=== PATIENT | male | born 1945 | race Caucasian/White ===

== ENCOUNTER 2021-01-20 15:18 | Outpatient (REF) | payer MEDICARE, SELFPAY ==
--- NOTE | ~2021-01-20 | XR_ITS ---
EXAMINATION: XR RIBS, LEFT CLINICAL INFORMATION: Contusion of unspecified frontal wall of the thorax COMPARISON: None TECHNIQUE: 3 views of the left ribs were obtained. FINDINGS: There is an acute left anterior fourth rib fracture. There is an acute left anterior 11th rib fracture. There are old-appearing left anterior fifth and sixth rib fractures. The cardiac and mediastinal contours are normal. The lungs are clear. There is no pleural effusion or pneumothorax. There are degenerative changes of the spine. XR/XR ribs LT min 3V w CXR1V IMPRESSION: Acute left anterior fourth and 11th rib fractures.
== END 2021-01-20 15:19 | disposition home or self-care (01) ==
LOC: HO.HMGCX 15:18
PROVIDERS: Visit Provider Internal Medicine
DX: S20.212D Contusion of left front wall of thorax, subsequent encounter (principal)
CPT/HCPCS: 71101

== ENCOUNTER 2021-02-16 13:36 | Outpatient (REF) | payer MEDICARE, SELFPAY ==
--- NOTE | ~2021-02-16 | XR_ITS ---
EXAMINATION: XR CHEST CLINICAL INFORMATION: Anterior chest wall contusion COMPARISON: Previous chest and left rib x-rays January 2021 TECHNIQUE: 2 views of the chest were obtained. FINDINGS: The cardiac and mediastinal contours are stable. The lungs are clear. There is no pleural effusion or pneumothorax. There are surgical clips projecting over the right posterior medial chest. There are degenerative changes of the spine. There are degenerative changes of the right shoulder joint. Left-sided rib fractures seen on rib x-rays 01/20/2021 are not appreciated. XR/XR chest 2V IMPRESSION: No evidence for acute disease in the chest.
== END 2021-02-16 13:37 | disposition home or self-care (01) ==
LOC: HO.HMGCX 13:36
PROVIDERS: Visit Provider Internal Medicine
DX: S20.219D Contusion of unspecified front wall of thorax, subsequent encounter (principal)
CPT/HCPCS: 71046

== ENCOUNTER 2023-03-28 11:05 | Outpatient (AMB) | payer MEDICARE, SELFPAY ==
--- NOTE | 2023-03-28 13:13 | MHC.OFFWIV ---
Intake Vital Signs 03/28/23 13:14 Height 6 ft 1 in Weight 223 lb 8 oz BMI 29.5 BP 138/70 Blood Pressure Location Rt brachial Position Sitting Pulse 88 Pulse Source Pulse Oximeter Temp 96 F L Temp Source Temporal Artery Scan Pulse Oximetry (%) 98 Oxygen Delivery Method Room Air Intake Visit Reasons: EP, head congestion ([phone]) Intake Note: Pt is here c/o head congestion for two weeks. Patient Tobacco Use Status: Former Tobacco user Allergies environmental Allergy (Mild, Uncoded 03/28/23 13:13) ear swelling general anesthia Adverse Reaction (Mild, Uncoded 03/28/23 13:13) afftects sleep apnea Do you need a note to return to daycare/school/sports/work: No HPI EP, head congestion ([phone]) HPI Details This is a 77-year-old male patient who presents today with a 2 week history of upper respiratory symptoms. He states that he started with cold symptoms, runny nose, body aches, congestion, cough, about 2 weeks ago, and at this point continues to have persistent productive cough with clear/ yellow sputum, and nasal pressure/congestion. Has tried some kjgw-[id number]-[id number] products without relief. Is having a hard time sleeping due to the cough. Denies any fever or chills. Denies shortness of breath. Denies any GI symptoms. [facility] Social History Patient Tobacco Use Status: Former Tobacco user Review of Systems Const All systems reviewed & are unremarkable except as noted in HPI and below Physical Exam Vital Signs: Last Vital Signs Temp 96 F L 03/28/23 13:14 Pulse 88 03/28/23 13:14 BP 138/70 03/28/23 13:14 Pulse Ox 98 03/28/23 13:14 Oxygen Delivery Method Room Air 03/28/23 13:14 BMI result Body Mass Index 29.5 Const General: cooperative and no acute distress HEENT Head: Yes normal to inspection Ears: hearing grossly normal bilaterally General nose exam: Normal external nose present and Nasal discharge present mucoid Face and sinus: Yes normal facial exam Mouth: Normal oral and palatal mucosa present Throat: Yes posterior oropharynx abnormal ( Mild erythema) Neck Neck: Yes no lymphadenopathy Resp Effort & Inspection: normal respiratory effort and Actively coughing Quality: productive Auscultation: clear to auscultation bilaterally and rhonchi upper bilaterally Cardio Palpation: normal PMI Rate: regular rate Rhythm: regular rhythm Skin General skin exam: no rashes or lesions noted Extrem General: Yes capillary refill normal and Yes no clubbing, cyanosis or edema Psych Appearance: grossly normal Mental Status: mental status grossly normal Speech and movement: Normal speech and movement present Assessment & Plan Assessment & Plan (1) Upper respiratory infection: Code(s): J06.9 - Acute upper respiratory infection, unspecified Qualifiers: URI type: unspecified URI Qualified Code(s): J06.9 - Acute upper respiratory infection, unspecified Plan: Antibiotics and benzonatate ordered for this patient. Reviewed indications, use, possible side effects of these. Advised ongoing conservative measures with increased hydration, decongestants as needed. If he does not improve with time and treatment, or if he develops any worsening symptoms such as shortness of breath or fever, he should return to the clinic for further evaluation. He verbalizes understanding and agrees to plan. Medications: New benzonatate 100 mg PO BID PRN 14 caps 0RF cough 7 days R05.9 - Cough, unspecified azithromycin For 250 mg dose pack: take 500 mg today (day 1), then 250 mg for 4 days (days 2-5) PO 6 tabs 0RF J06.9 - Acute upper respiratory infection, unspecified Coding Level of Care Code Est Pt Level 3 (47024) Diagnoses Upper respiratory tract infection, unspecified type J06.9 URI type: unspecified URI
[2023-03-28 13:14] VITALS: BP 138/70; PULSE 88; TEMP 35.5; O2SAT 98; BMI 29.5
== END 2023-03-28 13:46 | disposition home or self-care (01) ==
PROVIDERS: Visit Provider Nurse Practitioner Family
DX: J06.9 Acute upper respiratory infection, unspecified (principal)
CPT/HCPCS: 99213

== ENCOUNTER 2024-11-25 10:17 | Outpatient (AMB) | payer MEDICARE, SELFPAY ==
--- OUTSIDE RECORDS SUMMARY | 2024-11-25 12:14 | XMS_ITS ---
Author Name [facility] Organization Unknown History of Medication Use Medication Directions Dispensed Refills Start Date End Date Stat us lidocaine (PF) (XYLOCAINE-MPF) 1 % injection 5 mL 5 mL, Infiltration, Once, On Mon05/30/23 at 1445, For 1 dose 05/30/2023 05/30/2023 completed oxyCODONE-acetaminop hen (PERCOCET) 5-325 MG per tablet Take 1 tablet by mouth every 6 (six) hours as needed for pain. 05/30/2023 05/30/2023 active oxymetazoline (AFRIN) 0.05 % nasal spray 2 spray 2 spray, Each Nare, 2 times daily PRN, congestion, Starting on Mon05/30/23 at 1457 05/30/2023 active omeprazole (PriLOSEC) 20 MG capsule Take 1 capsule (20 mg total) by mouth daily. active Problems Problem Status Onset Date Problem Type Date of Resoluti on Source Epistaxis active EncounterDiagnosisAct [facility] Lip laceration active EncounterDiagnosisAct [facility] Maxillary fracture (HCC) active EncounterDiagnosisAct [facility] Immunizations Vaccine Date Source Lot Number Status Tdap 05/30/2023 [facility] [id number] completed Tdap 05/30/2023 [facility] [id number] completed Encounters Encounter Type Encounter Reason Primary Diagnosis Location Date Emergency Maxillary fracture, unspecified side, initial encounter for closed fracture Maxillary fracture, unspecified side, initial encounter for closed fracture [facility] 05/30/2023 Care Team Organization Name Specialty Phone Email Start Date End Da te [facility] DARIO HERNANDES Primary Care 05/29 [facility] 202310/01/2024 [facility] 05/30/2023
--- OUTSIDE RECORDS SUMMARY | 2024-11-25 12:14 | XMS_ITS | Clinical Summary ---
Author Organization [facility] Address [address] [place] [address] Care Team Providers Care Materials Recycler Name Role Phone Brandon Varner MD Primary Care Provider [phone] Allergies No known active allergies Medications Medication Sig Dispensed Refills Start Date End Date Status metoprolol succinate (TOPROL-XL) 24 hr tablet 50 mg Take by mouth daily. 0 Active losartan (COZAAR) tablet 25 mg Take 1 tablet (25 mg total) by mouth daily. 0 Active omeprazole (PriLOSEC) 20 MG capsule Take 1 capsule (20 mg total) by mouth daily. 0 Active atorvastatin (LIPITOR) tablet 20 mg Take 1 tablet (20 mg total) by mouth daily. 0 Active oxyCODONE-acetaminoph en (PERCOCET) 5-325 MG per tablet Take 1 tablet by mouth every 6 (six) hours as needed for pain. 12 tablet 0 05/30/2023 Active Active Problems No known active problems Immunizations Name Administration Dates Next Due Tdap 05/30/2023 Social History Tobacco Use Types Packs/Day Years Used Date Smoking Tobacco: Former Cigarettes Smokeless Tobacco: Former Tobacco Cessation:Counseling Given: Not Answered Sex and Gender Information Value Date Recorded Sex Assigned at Male 05/30/2023 2:04 PM EDT Gender Identity Not on file Sexual Orientation Not on file Job Start Date Occupation Industry Not on file Not on file Not on file Last Filed Vital Signs Vital Sign Reading Time Taken Comments Blood Pressure 148/61 05/30/2023 4:46 PM EDT Pulse 66 05/30/2023 4:46 PM EDT Temperature 36.8 C (98.2 F) 05/30/2023 4:46 PM EDT Respiratory Rate 20 05/30/2023 4:46 PM EDT Oxygen Saturation 96% 05/30/2023 4:46 PM EDT Inhaled Oxygen Concentration - - Weight 108.9 kg (240 lb) 05/30/2023 2:17 PM EDT Height 185.4 cm (6' 1 ) 05/30/2023 2:17 PM EDT Body Mass Index 31.66 05/30/2023 2:17 PM EDT Plan of Treatment Health Maintenance Due Date Last Done Comments Hepatitis C Screening 1945 COVID-19 Vaccine (#1) 1947 Depression Screening 1959 Preventative Health Evaluation 1965 Shingrix-Zoster Vaccine (1 of 2) 1997 Fall Risk Assessment 2012 Pneumococcal Vaccine (1 of 1 - PCV) 2012 RSV Adult > 60+ Yrs or Pregn ant (1 - 1-dose 75+ series) 2022 Influenza Vaccine (#1) 2024 DTap / Tdap / Td (2 - Td or Tdap) 05/29/2033 024 Hepatitis B Vaccines Aged Out No long er eligible based on patient's age to complete this topic RSV Ped < 20 months Aged Out No longe r eligible based on patient's age to complete this topic Care Teams Materials Recycler Relationship Specialty Start Date End Date Brandon Varner MD [address] [place] [id number] PCP - General Internal Medicine 05/30/23
--- OUTSIDE RECORDS SUMMARY | 2024-11-25 12:14 | XMS_ITS | Clinical Summary ---
Author Organization [facility] Address [address] [place] [address] Care Team Providers Care Obiee Obia Solution Architect Name Role Phone Brandon Varner MD Primary Care Provider [phone] Medical History Medical History Date Comments Hypertension DX:Hypertension GERD (gastroesophageal reflux disease) DX:GERD (gastroesophageal reflux disease) Sleep apnea DX:Sleep apnea High cholesterol DX:High cholest elizabeth Social History Tobacco Use Types Packs/Day Years Used Date Smoking Tobacco: Former Smokeless Tobacco: Former Sex and Gender Information Value Date Recorded Sex Assigned at Not on file Legal Sex Male 4:09 PM EST Gender Identity Not on file Sexual Orientation Not on file Obstetrics History Plan of Treatment Health Maintenance Due Date Last Done Comments Pneumococcal Vaccine: 50+ Ye ars (1 of 1 - PCV) 1997 Zoster Vaccines (1 of 2) 1997 Cholesterol Screening (Lipid Panel) 02/16/2022 Falls Risk Assessment 02/16/2022 Hepatitis C Screening 02/16/2022 Social Influencers of Health Screening 02/16/2022 RSV Immunization Adult Patie nts (1 - 1-dose 75+ series) 2022 Depression Screening 03/20/2024 COVID-19 Vaccine (1 - 2023-2 5 season) 2024 Influenza Vaccine (#1) 2024 DTaP,Tdap,and Td Vaccines (2 - Td or Tdap) 05/29/2033 05/30/2023 HIB Vaccines Aged Out No longer eligi ble based on patient's age to complete this topic HPV Vaccines Aged Out No longer eligi ble based on patient's age to complete this topic Hepatitis A Vaccines Aged Out No long er eligible based on patient's age to complete this topic Hepatitis B Vaccines Aged Out No long er eligible based on patient's age to complete this topic IPV Vaccines Aged Out No longer eligi ble based on patient's age to complete this topic MMR Vaccines Aged Out No longer eligi ble based on patient's age to complete this topic Meningococcal ACWY Vaccine Aged Out N o longer eligible based on patient's age to complete this topic Meningococcal B Vaccine Aged Out No l onger eligible based on patient's age to complete this topic RSV Immunization Patients Un efe 20 months Aged Out No longer eligible b ased on patient's age to complete this topic Varicella Vaccines Aged Out No longer eligible based on patient's age to complete this topic Care Teams Obiee Obia Solution Architect Relationship Specialty Start Date End Date Brandon Varner MD PCP - General 05/30/23
== END 2024-11-25 10:23 | disposition home or self-care (01) ==
LOC: HO.HMGAL 10:17
PROVIDERS: Visit Provider Registered Nurse Emergency
DX: J30.89 Other allergic rhinitis (principal)
CPT/HCPCS: 95117; 95165

== ENCOUNTER 2025-01-01 09:21 | Outpatient (AMB) | payer MEDICARE, SELFPAY ==
--- OUTSIDE RECORDS SUMMARY | 2025-01-01 10:30 | XMS_ITS | Clinical Summary ---
Author Organization [facility] Address [address] [place] [address] Care Team Providers Care Construction Site Manager Name Role Phone Brandon Varner MD Primary Care Provider Allergies No known active allergies Medications Medication [...] age to complete this topic Care Teams Construction Site Manager Relationship Specialty Start Date End Date Brandon Varner MD [address] [place] [id number] PCP - General Internal Medicine 05/30/23
--- OUTSIDE RECORDS SUMMARY | 2025-01-01 10:30 | XMS_ITS | Clinical Summary ---
Author Organization [facility] Address [address] [place] [address] Care Team Providers Care Gate Shear Operator Name Role Phone Brandon Varner MD Primary Care Provider Medical History Medical History Date Comments Hypertension [...] age to complete this topic Care Teams Gate Shear Operator Relationship Specialty Start Date End Date Brandon Varner MD PCP - General 05/30/23
== END 2025-01-01 09:21 | disposition home or self-care (01) ==
LOC: HO.HMGAL 09:21
PROVIDERS: PCP Internal Medicine; Visit Provider Registered Nurse Emergency
DX: J30.89 Other allergic rhinitis (principal)
CPT/HCPCS: 95117; 95165